=== PATIENT | female | born 2000 | race Caucasian/White ===

== ENCOUNTER 2025-03-31 22:18 | Emergency (ER) | payer MEDICAID ==
[~2025-03-31] VITALS: Ht 154.9 cm; Wt 60.0 kg
[2025-03-31 22:34] VITALS: O2SAT 100
[2025-04-01] MEDS: ACETAMINOPHEN 325MG TABLET PO ONE (01:20)
[2025-04-01] MEDS: TETANUS, DIPHTHERIA, PERTUSSIS VAC/PF 0.5ML (>10YR OLD) IM ONE (01:28)
[2025-04-01] MEDS ORDERED: IBUP-2029 MT (02:27)
[2025-04-01] MEDS ORDERED: BO1 TP (02:27)
[2025-04-01 02:39] VITALS: BP 118/61; PULSE 66; RESP 14; TEMP 36.7; O2SAT 100
== END 2025-04-01 02:49 | disposition home or self-care (01) ==
LOC: ER 22:18
DX: S09.90XA Unspecified injury of head, initial encounter (principal); S40.012A Contusion of left shoulder, initial encounter; Z79.899 Other long term (current) drug therapy; W22.09XA Striking against other stationary object, initial encounter; Y93.89 Activity, other specified; Y92.89 Other specified places as the place of occurrence of the external cause; Y99.8 Other external cause status
CPT/HCPCS: 73502; 81025; 90471; 90715; 99285